=== PATIENT | male | born 1975 | race African-American/Black ===

== ENCOUNTER 2016-06-13 09:42 | Emergency (ER) | payer BC ==
[2016-06-13 09:43] VITALS: BMI 37.6
[2016-06-13 09:58] VITALS: TEMP 97.8
[2016-06-13] MEDS ORDERED: NS 1,000 ML IV ONE (10:12)
--- NOTE | 2016-06-13 11:42 | EDPRACDOC ---
- General Information Chief Complaint: Generalized Weakness Stated Complaint: SYNCOPE/BACK PAIN Time Seen by Provider: 06/13/16 10:06 Information Source: Patient Mode Of Arrival: Ambulance Home Medications: Home Medications Diazepam [Valium] 5 mg PO TID PRN #15 tablet 05/26/16 Telmisartan/Amlodipine [Telmisartan-Amlodipine 80-10] 1 tab PO DAILY #30 tablet NS 05/26/16 Ketorolac Tromethamine [Toradol] 10 mg PO Q6H PRN #20 tab 06/13/16 Allergies/Adverse Reactions: Allergies Allergy/AdvReac Type Severity Reaction Status Date / Time No Known Allergies Allergy Verified 05/25/16 23:09 - History of Present Illness Onset: sea captain Exact Onset of Symptoms: Unknown HPI: PT SAID THAT HE HAS A HX OF BACK PROBLEMS. TODAY, HE TOOK HIS PAIN MEDS AND FELT DIZZY AND NAUSEOUS. THE PT SAID THAT HE DID NOT EAT THIS AM, BUT HAS TAKEN HIS MEDS ON AN EMPTY STOMACH. Symptoms Started: Reports: Suddenly Symptoms Description: Improved Weakness: Bilateral: Generalized Symptoms: Reports: Weak Associated signs and symptoms:: Reports: None ED Past Medical History - Patient Medical History Psychological History: Denies: Depression Systemic History: Denies: Cancer Additional Past Medical History: CHRONIC LBP Surgical History: Reports: Other (BILATERAL KNEE) - Social Medical History Smoking Status: Heavy tobacco smoker (5 or more cigarettes/day or daily pipe/ cigar) ETOH: None Substance Abuse: None Lives In: Home EDM Review of Systems - Review of Systems ROS Negative Except as Marked: Yes All systems reviewed and were negative except as marked Constitutional: Weakness Musculoskeletal: Back - Physical Exam Constitutional: Alert (Awake), No apparent distress Oriented to: Time, Person, Place Last recorded Vital Signs: Last Vital Signs Temp 97.8 F 06/13/16 09:54 Pulse 81 06/13/16 10:00 Resp 16 06/13/16 09:54 BP 152/85 06/13/16 10:00 Pulse Ox 96 06/13/16 09:54 Oxygen Pulse Oxygen Saturation 96 O2 Device Room Air Oxygen Flow Rate Fraction of Inspired Oxygen ( FIO2) - HEENT Head: Normal ( normocephalic) Eye Exam: Normal (PERRL, EOMI, Sclera white) Oropharynx: Normal (Pharynx:Moist without exudate,Gums-no swelling) ENT EAC: Normal TMJ: Normal Nose: No Symptoms Reported (septum midline) Neck: Normal (FROM, trachea at midline) - Respiratory/Cardiovascular Respiratory: Normal - CTA (BBS clear to auscultation without adventitious sounds ) Cardiovascular: Normal (RRR without murmur, gallop or rub) - GI Auscultation: Normal (NABS) Palpation: Normal (Soft,No rebound or guarding, non distended) Tenderness: Non tender Burden's Sign: Negative - Musculoskeletal Back: Normal (Non-Tender) Extremities: Normal (Normal tone, Pulses 2+ No cyanosis or edema, FROM) - Integumentary Skin: Normal, Warm, Dry Lymphatics: Normal (no adenopathy) - Neurologic Memory Impaired: Normal Motor Function: Normal (Normal tone, Pulses 2+ No cyanosis or edema, FROM) Cranial Nerve: Normal (CN II-X11 intact sensation, strength 5/5) Cerebellar: Normal Mood Description: Normal Perception: Normal - Results 06/13/16 12:00 06/13/16 12:00 - EKG EKG #1 EKG Time: 11:10 -: Yes EKG interpreted by me Rate: bpm: 62 [place]: Normal Rhythm: NSR Block: None Hypertrophy: None ST: Normal Decision Time to Discharge: 13:36 - Departure Yes I personally saw and evaluated the patient. Disposition: Home Condition: Fair Final Diagnosis: Dizziness Instructions: Weakness (General) Education/Counseling Given To: Patient Education/Counseling Given Regarding: Diagnosis, Treatment, Follow Up Referrals: None,No Provider [Primary Care Provider] - One Week Rosalia Chan MD [Staff Physician] - One Week Prescriptions: Ketorolac Tromethamine [Toradol] 10 mg PO Q6H PRN #20 tab PRN Reason: Pain Forms: Excuse Note
[2016-06-13 12:07] LABS: AUTOMATED BASOPHIL 0.6 % (0-2); AUTOMATED EOSINOPHIL 0.8 % (0-5); AUTOMATED LYMPH 18.2 % (17-44); AUTOMATED MONOCYTE 8.4 % (3-10); MPV 10.2 fL (7.4-10.4)
[2016-06-13 12:16] LABS: RBC/URINE 0-2 (0-2); WBC/URINE 0-2 (0-2)
[2016-06-13 12:20] LABS: PT-INR 1.2
[2016-06-13 12:21] LABS: LEUKOCYTES/URINE NEG (NEGATIVE); NITRITE/URINE NEG (NEGATIVE); URINE OCCULT BLOOD NEG (NEG/TRACE)
[2016-06-13 12:27] LABS: BLOOD UREA NITROGEN 10 MG/DL (9-20); CALC CORRECTED 9.6 MG/DL (8.4-10.2); CALCIUM 9.4 MG/DL (8.4-10.2); CALCULATED OSMOLALITY 269 MOs/Kg (270-290); CHLORIDE 104 mEq/L (98-107); GLUCOSE 112 MG/DL (70-99); SODIUM LEVEL 140 mEq/L (137-146); TOTAL PROTEIN 7.4 G/DL (6.3-8.2)
[2016-06-13 13:58] VITALS: BP 135/72; PULSE 71
--- NOTE | 2016-06-13 14:27 | DIRPT ---
CLINICAL DATA: Nausea and vomiting. Dizziness. EXAM: PORTABLE CHEST 1 VIEW COMPARISON: None. FINDINGS: The heart size and mediastinal contours are within normal limits. There is no evidence of pulmonary edema, consolidation, pneumothorax, nodule or pleural fluid. The visualized skeletal structures are unremarkable. IMPRESSION: No active disease. Electronically Signed By: Cheko Sutton M.D. On: 06/13/2016 14:24
== END 2016-06-13 13:55 | disposition home or self-care (01) ==
LOC: ED 09:42
DX: R42 Dizziness and giddiness (principal); M54.5 Low back pain; G89.29 Other chronic pain; F17.200 Nicotine dependence, unspecified, uncomplicated; Z79.899 Other long term (current) drug therapy
CPT/HCPCS: 36415; 71010; 80053; 81001; 84484; 85025; 85610; 85730; 93005; 96360; 99283